=== PATIENT | male | born 1950 | race Two or more races ===

== ENCOUNTER 2019-11-16 14:55 | Outpatient (CLI) | payer OTHER | END 2019-11-16 15:00 | disposition home or self-care (01) | LOC: RAD 14:55 | PROVIDERS: ATTEND General Practice | DX: Z18.11 Retained magnetic metal fragments (principal) ==

== ENCOUNTER 2020-02-01 12:05 | Outpatient (CLI) | payer OTHER | END 2020-02-01 12:13 | disposition home or self-care (01) | LOC: RAD 12:05 | PROVIDERS: ATTEND General Practice | DX: M79.642 Pain in left hand (principal) ==